=== PATIENT | female | born 2000 ===

== ENCOUNTER 2024-10-03 00:11 | Emergency (ER) | payer BC, SELFPAY ==
[2024-10-03 00:16] VITALS: BP 116/60; PULSE 67; RESP 18; TEMP 37; O2SAT 97; BMI 31.6
[2024-10-03 01:05] VITALS: BP 111/69; PULSE 73; RESP 16; TEMP 36.7; O2SAT 97
--- NOTE | 2024-10-03 01:52 | ED.ALLEREA ---
HPI - Allergic Reaction General Chief complaint: Allergic Reaction Stated complaint: Itching all over body Time Seen by Provider: 10/03/24 01:23 Source: patient Mode of arrival: ambulatory Limitations: no limitations History of Present Illness ED Provider: Dr. Promise Arias HPI narrative: Patient comes to the emergency room complaining of 2 consecutive days of hives and itching. Patient states that she is not aware of any allergies. Patient took [id number] Claritin and Benadryl anti-itch cream. To patient's knowledge, she reports no new detergents, foods. At this time, patient states that the hives resolved, not being any itchiness, not having any difficulty breathing. Patient asymptomatic Related Data Previous Rx's ?Medication ?Instructions ?Recorded diphenhydramine HCl 25 mg capsule 50 mg (2 x 25 mg) PO ONCE PRN 10/03/24 (Benadryl) allergic reaction #10 caps famotidine 40 mg tablet (Pepcid) 40 mg PO ONCE PRN allergic 10/03/24 reaction #5 tabs prednisone 50 mg tablet 50 mg PO ONCE PRN allergic 10/03/24 reaction #5 tabs Allergies Allergy/AdvReac Type Severity Reaction Status Date / Time No Known Allergies Allergy Verified 10/03/24 00:21 Review of Systems Review of Systems: Constitutional : No Weight loss, No Fever, No Chills, No Night Sweats, No Fatigue, No Malaise ENT/Mouth : No Hearing loss, No Ear Pain, No Nasal Congestion, No Sinus Pain, No Hoarseness, No sore throat, No Rhinorrhea, No Swallowing Difficulty Eyes: No Eye Pain, No Swelling, No Redness, No Foreign Body, No Discharge, No Vision Changes Cardiovascular : No Chest Pain, No SOB, No Dyspnea on Exertion, No Orthopnea, No Edema, No Palpitations Respiratory : No Cough, No Sputum, No Wheezing, No Smoke Exposure, No Dyspnea Gastrointestinal : No Nausea, No Vomiting, No Diarrhea, No Constipation, No abdominal Pain, No Hematochezia, No Melena Genitourinary : no irregular bleeding, No Dysuria, No Urinary Frequency, No Hematuria, No Urinary Incontinence, No Urgency, No Flank Pain, No Urinary Flow Changes, No Hesitancy Musculoskeletal : No joint pain, No Myalgias, No Joint Swelling Skin : Complaining of 2 episodes of hives and itching Neuro : No Weakness, No Numbness, No Paresthesias, No Loss of Consciousness, No Dizziness, No Headache Psych : No Anxiety/Panic, No Depression, No SI/HI/AH/VH, No Social Issues, Heme/Lymph: No Bruising, No Bleeding,No Lymphadenopathy Endocrine : No Polyuria, No Polydipsia, No Temperature Intolerance [facility] Social History Social History Smoked in Last 30 Days: No Use of substances other than those prescribed or required for medical reasons: No Patient : No Physical Exam ED Vital Signs: Vital Signs - 24 hr 10/03/24 00:16 10/03/24 01:05 Temperature 98.6 F 98.1 F Pulse Rate 67 73 Respiratory Rate 18 16 Blood Pressure 116/60 111/69 Pulse Oximetry 97 97 Oxygen Delivery Method Room Air Room Air BMI result Body Mass Index 31.6 Const Other: Appearance: Alert. Oriented X3. No acute distress. Eyes: Pupils equal, round and reactive to light. ENT: Pharynx normal. Neck: Normal inspection. Neck supple. No lymph nodes noted. No crepitus CVS: Normal heart rate and rhythm. Pulses normal. Normal S1 and S2 Respiratory: No respiratory distress. Breath sounds normal. No Wheezing. No rales Abdomen: Soft and nontender. No rigidity. No distention. Skin: Skin warm and dry. Normal skin color. Normal skin turgor. Extremities: No lower extremity edema. No Lacerations. No Rash Neuro: Oriented X 3. No motor deficit. No sensory deficit. Moving all extremities. No slurred speech. CN 2 through 12 grossly intact Psych: calm, cooperative, normal affect Medical Decision Making Medical Decision Making MDM Narrative: Prior to arrival, patient took Claritin and Benadryl and the itching cream, likely resolve the patient's hives. At this time, patient is asymptomatic. Discussed with the patient that she needs to follow-up with the PCP, will likely need a referral to immunology to help her figure out what she is allergic to Discharge Plan Discharge Clinical Impression: Urticaria Patient Disposition: Home, Self-Care Instructions: Urticaria (ED) Additional Instructions: Please follow-up with your primary care physician tomorrow. You may need a referral for an communication lecturer. If you have any worsening or new symptoms, please return to the emergency room or call 911 Prescriptions: New diphenhydramine HCl [Benadryl] 25 mg capsule 50 mg PO ONCE PRN (Reason: allergic reaction) Qty: 10 0RF famotidine [Pepcid] 40 mg tablet 40 mg PO ONCE PRN (Reason: allergic reaction) Qty: 5 0RF prednisone 50 mg tablet 50 mg PO ONCE PRN (Reason: allergic reaction) Qty: 5 0RF
[2024-10-03 01:59] VITALS: BP 111/69; PULSE 73; RESP 16; TEMP 36.7; O2SAT 97
== END 2024-10-03 03:57 | disposition home or self-care (01) ==
LOC: HO.ED 03:47
PROVIDERS: Emergency Provider Emergency Medicine
DX: L50.9 Urticaria, unspecified (principal)
CPT/HCPCS: 99283; 99284